=== PATIENT | male | born 1950 | race Caucasian/White ===

== ENCOUNTER 2018-01-08 15:33 | Inpatient (IN) | payer BC, MEDICARE ==
[2018-01-08] MEDS ORDERED: Piperacillin/Tazobac ADVAN(*) 3.375 GM in NS 0.9% 100 ML* 100 ML IVPB ONE (15:48)
[2018-01-08] MEDS ORDERED: NS 0.9% 1000 ML* 1,000 ML IV ONE ×2 (15:48→18:48)
--- NOTE | 2018-01-08 16:10 | ED ---
GI/ HPI - HPI Summary HPI Summary: This pt is a 67 y/o male [facility] [place] by Dr. Mueller for fever and urinary frequency/urgency since yesterday. Pt reports he had a biopsy of his prostate in [place], [place] 2 days ago. Pt notes that yesterday he had a fever , max of 101 F. Today he has been shaking all day as he reports he is freezing. Additionally he reports urinary frequency and urgency with a weak stream since last night. Today he had some urinary incontinence. Denies dysuria, nausea, vomiting, abd pain, chest pain, SOB. Pt went to see Dr. Mueller, urologist, today and was sent to the ED to rule out an infection. - History of Current Complaint Chief Complaint: EDFever Time Seen by Provider: 01/08/18 15:37 Stated Complaint: FEVER/SENT BY DR MUELLER Hx Obtained From: Patient Onset/Duration: Started Days Ago - 1, Still Present Timing: Lasting Days - 1 Current Severity: Moderate Pain Intensity: 0 Associated Signs and Symptoms: Positive: Fever, Chills, UTI Symptoms - urinary urgency and frequency, Other: - urine incontinence today. Negative: Nausea, Vomiting, Dysuria, Abdominal Pain, Chest Pain Aggravating Factor(s): Nothing Alleviating Factor(s): Nothing - Allergy/Home Medications Allergies/Adverse Reactions: Allergies Allergy/AdvReac Type Severity Reaction Status Date / Time No Known Allergies Allergy Verified 01/08/18 15:46 Home Medications: Home Medications Bisoprolol/Hydrochlorothiazide [Ziac 10-6.25 mg-] 1 tab PO DAILY 01/08/18 [ History Confirmed 01/08/18] Flecainide TAB(NF) 75 mg PO BID 01/08/18 [History Confirmed 01/08/18] Rivaroxaban TAB(*) [Xarelto 10 mg (*)] 20 mg PO DAILY 01/08/18 [History Confirmed 01/08/18] PMH/Surg Hx/FS Hx/Imm Hx Cardiovascular History: Reports: Hx Atrial Fibrillation, Hx Hypertension - never very high Infectious Disease History: No Infectious Disease History: Denies: Hx Clostridium Difficile, Hx Hepatitis, Hx Human Immunodeficiency Virus (HIV), Hx of Known/Suspected MRSA, Hx Shingles, Hx Tuberculosis, Hx Known/ Suspected VRE, Hx Known/Suspected VRSA, History Other Infectious Disease, Traveled Outside the [place] in Last 30 Days - Family History Known Family History: Positive: Hypertension - mother - Social History Alcohol Use: None Substance Use Type: Reports: None Smoking Status (MU): Never Smoked Tobacco Review of Systems Positive: Fever, Chills Negative: Chest Pain Negative: Shortness Of Breath Negative: Vomiting, Nausea Positive: frequency, incontinence - urine today, urgency. Negative: dysuria All Other Systems Reviewed And Are Negative: Yes Physical Exam - Summary Physical Exam Summary: VITAL SIGNS: Reviewed. GENERAL: Patient is a well-developed and nourished male who is lying comfortable in the stretcher. Patient is not in any acute respiratory distress. Pt is afebrile but has chills. HEAD AND FACE: No signs of trauma. No ecchymosis, hematomas or skull depressions. No sinus tenderness. EYES: PERRLA, EOMI x 2, No injected conjunctiva, no nystagmus. EARS: Hearing grossly intact. Ear canals and tympanic membranes are within normal limits. MOUTH: Oropharynx within normal limits. NECK: Supple, trachea is midline, no adenopathy, no JVD, no carotid bruit, no c- spine tenderness, neck with full ROM. CHEST: Symmetric, no tenderness at palpation LUNGS: Clear to auscultation bilaterally. No wheezing or crackles. CVS: Regular rate and rhythm, S1 and S2 present, no murmurs or gallops appreciated. ABDOMEN: Soft, non-tender. No signs of distention. No rebound, no guarding, and no masses palpated. Bowel sounds are normal. EXTREMITIES: FROM in all major joints, no edema, no cyanosis or clubbing. NEURO: Alert and oriented x 3. No acute neurological deficits. Speech is normal and follows commands. SKIN: Dry and warm Triage Information Reviewed: Yes Vital Signs On Initial Exam: Initial Vitals Temp Pulse Resp BP Pulse Ox 99.1 F 71 16 168/78 98 01/08/18 15:41 01/08/18 15:41 01/08/18 15:41 01/08/18 15:41 01/08/18 15:41 Vital Signs Reviewed: Yes Diagnostics - Vital Signs Vital Signs Temp Pulse Resp BP Pulse Ox 01/08/18 15:41 99.1 F 71 16 168/78 98 - Laboratory Result Diagrams: 01/08/18 16:05 01/08/18 16:05 Lab Statement: Any lab studies that have been ordered have been reviewed, and results considered in the medical decision making process. - Radiology Chest XR Xray Interpretation: No Acute Changes - IMPRESSION: No evidence for acute disease. Dr. Arreola has reviewed this report. Radiology Interpretation Completed By: Radiologist - EKG 15:56 Cardiac Rate: NL - at 71 bpm EKG Rhythm: Sinus Rhythm EKG Interpretation: No ST elevations. EKG Comparison: No Significant Change - Similar to prior on 01/19/15. GIGU Course/Dx - Course Assessment/Plan: This pt is a 67 y/o male presenting to [facility] referred by Dr. Mueller for fever and urinary frequency/urgency since yesterday. Pt reports he had a biopsy of his prostate in [place], [place] 2 days ago. Pt notes that yesterday he had a fever, max of 101 F. Today he has been shaking all day as he reports he is freezing. Additionally he reports urinary frequency and urgency with a weak stream since last night. Today he had some urinary incontinence. Denies dysuria, nausea, vomiting, abd pain, chest pain, SOB. Pt went to see Dr. Mueller, urologist, today and was sent to the ED to rule out an infection. Blood test results shows WBC of 29.3, with 87.8 neutrophils. CRP is 202, urinalysis shows 2+ blood, 1+ leukocytes, 3+ WBCs, 3+ RBCs and positive hyaline cast. In the ED course the patient was given a liter of fluids, he was given Zosyn after blood cultures, lactic acid and urine cultures. At this time I discussed the case with Dr. Maciel, hospitalist, who accepted the patient for admission. Dr. Mueller will consult for this patient. The patient is feeling better. He is hemodynamically stable and he is alert and oriented 3. - Diagnoses Differential Diagnoses - Male: Prostatitis, Urinary Tract Infection Provider Diagnoses: Prostatitis - Physician Notifications Discussed Care Of Patient With: Christofer Maciel - hospitalist Time Discussed With Above Provider: 16:55 Instructed by Provider To: Admit As Inpatient Discharge - Sign-Out/Discharge Documenting (check all that apply): Patient Departure - Admit to [facility] - Discharge Plan Condition: Stable Disposition: ADMITTED TO [facility] Referrals: Lyubov Donahue MD [Primary Care Provider] - - Attestation Statements Document Initiated by Scribe: Yes Documenting Scribe: Liss Colvin Provider For Whom Scribe is Documenting (Include Credential): Jaime Arreola MD Scribe Attestation: ILiss, scribed for Jaime Arreola MD on 01/08/18 at 1836.
[2018-01-08 16:14] LABS: Urine Appearance Cloudy; Urine Blood 2+ (Negative); Urine Color Yellow; Urine Ketones Negative (Negative); Urine Protein Negative (Negative); Urine Red Blood Cell 3+(>10/hpf) (Absent); Urine Specific Gravity 1.019 (1.010-1.030); Urine Urobilinogen Negative (Negative); Urine White Blood Cell 3+(>20/hpf) (Absent)
[2018-01-08 16:15] LABS: Hematocrit 44 % (42-52); Hemoglobin 14.8 g/dl (14.0-18.0); Mean Corpuscular HGB Conc 34 g/dl (31-36); Mean Corpuscular Hemoglobin 30 pg (27-31); Mean Corpuscular Volume 88 fL (80-94); Mean Platelet Volume 7.8 um3 (7.4-10.4); Platelet Count 231 10^3/ul (150-450); Red Blood Count 4.97 10^6/ul (4.00-5.40); Red Cell Distribution Width 13 % (10.5-15); White Blood Count 29.3 10^3/ul (3.5-10.8)
[2018-01-08 16:24] LABS: INR 1.2 (0.77-1.02)
[2018-01-08 16:33] LABS: EGFR Non-African American 62.4 (>60)
--- NOTE | 2018-01-08 16:36 | RAD ---
INDICATION: Fever. COMPARISON: There are no relevant prior studies available for comparison. TECHNIQUE: A portable view of the chest was obtained. FINDINGS: Cardiac and mediastinal contours appear to be within normal limits. The lungs are underinflated and clear. No pleural effusion is seen. IMPRESSION: NO EVIDENCE FOR ACUTE DISEASE.
[2018-01-08 16:45] LABS: ABS Basophils 0.1 10^3/ul (0-0.2); ABS Eosinophils 0 10^3/ul (0-0.6); ABS Monocytes 2.5 10^3/ul (0-0.8); ABS Neutrophils 25.7 10^3/ul (1.5-7.7); ABS Nucleated RBC 0.1 10^3/ul; Eosinophil % 0 % (0-6); Lymphocyte % 3.5 % (25-47); Nucleated Red Blood Cells % 0.4
[2018-01-08] MEDS ORDERED: Piperacillin/Tazobac (*) 3.375 GM BAG ONE (17:02)
[2018-01-08] MEDS ORDERED: Acetaminophen TAB* 325 MG PO ONE (17:34)
[2018-01-08] MEDS ORDERED: Acetaminophen TAB* 325 MG ONE (17:36)
[2018-01-08] MEDS ORDERED: Ondansetron INJ* 2 MG/ML VIAL IV PRN (18:20)
[2018-01-08] MEDS ORDERED: Magnesium Hydroxide LIQ* 30 ML UDC PO PRN (18:20)
[2018-01-08] MEDS ORDERED: Al Hydrox/Mg Hydrox/Simet LIQ* 30 ML UDC PO PRN (18:20)
[2018-01-08] MEDS: Acetaminophen TAB* 325 MG PO PRN (21:39)
[2018-01-08] MEDS: Flecainide TAB* 100 MG PO SCH (21:43)
[2018-01-08] MEDS: NS 0.9% 1000 ML* 1,000 ML IV SCH (21:48)
[2018-01-08] MEDS: Piperacillin/Tazobac ADVAN(*) 3.375 GM in NS 0.9% 100 ML* 100 ML IVPB SCH (22:32)
--- NOTE | 2018-01-08 23:28 | HP ---
CC: Dr. Donahue; Dr. Velazquez * ADMISSION HISTORY AND PHYSICAL: DATE OF ADMISSION: 01/08/18. PATIENT OF ADMITTING HOSPITALIST: Dr. Christofer Maciel.* (DICTATED BY LUZ KEMP) PRIMARY CARE PHYSICIAN: Dr. Lyubov Donahue. PRIMARY UROLOGIST: Dr. Marcelo Velazquez. CHIEF COMPLAINT: Fever, chills, dysuria, and urinary frequency. HISTORY OF PRESENT ILLNESS: Mr. Ulloa is a 67-year-old gentleman, who has past medical history significant for hypertension and atrial fibrillation for which he has been maintained on Xarelto, who was referred to the emergency room by Dr. Velazquez with complaints of fever and urinary symptoms. The patient apparently has history of elevated PSA for which he has been followed closely by Dr. Velazquez. He had multiple imaging including an MRI that showed suspicious lesion within the prostate gland. He was referred to [facility] urology group in [place] to consider MRI guided needle biopsy which he had done 2 days ago. He started having a fever yesterday up to 101 degrees at home and he was shaking all day, yesterday, felt like he was freezing as well. Last night, he said that he got up approximately 20 times with urinary frequency, urgency, weak stream and dysuria since last night. He took some Tylenol that helped with fever, however, did not help his urinary symptoms at all. He denied any suprapubic or flank pain. No chest pain, shortness of breath, nausea, vomiting or any other associated symptoms. He got in touch with Dr. Velazquez today and the patient was sent to the emergency room to rule out an infection. Urine and blood cultures were drawn and the results are pending at this time. During his ER stay, the patient was found to be febrile on presentation with temperature of 101.3. His blood pressure was slightly elevated at 168/78, however, he was not tachycardiac with heart rate of 71. He had laboratory workup in the ED that revealed leukocytosis with a white count of 29,000. His initial urinalysis revealed 1+ leukocytes and 3+ white cells as well as 3+ rbc's. He denied any scrotal pain or testicular pain. He denied any changes in the bowel movements or bleeding per rectum. Given his ongoing symptoms and the high likelihood of him having prostatitis post biopsy, we were asked to see the patient to consider admission for IV antibiotics. PAST MEDICAL HISTORY: Significant for: 1. Hypertension. 2. Atrial fibrillation for which the patient had a cardioversion done twice in the past by Dr. Murrell and has been maintained on Xarelto and flecainide. 3. History of elevated PSA and prostatic lesions. 4. Hypertension. PAST SURGICAL HISTORY: Significant for history of atrial fibrillation x2. FAMILY HISTORY: Significant for hypertension in his mother. Denies any history of prostate cancer in his family. SOCIAL HISTORY: The patient has never smoked tobacco. He does not drink alcohol or use illicit drug use. 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 REVIEW OF SYSTEMS: See HPI, otherwise a 12-point review of systems were examined and they were essentially negative. PHYSICAL EXAMINATION GENERAL: He is a pleasant, obese middle age gentleman, in no acute distress or discomfort at the time of admission. VITAL SIGNS: Most recently was temperature of 101.3, pulse of 71, O2 sat of 98 % with respiratory rate of 16, and blood pressure of 168/78. HEENT: Head is normocephalic, atraumatic. Sclerae anicteric. PERRLA, EOMs intact. Oropharynx is pink and moist. NECK: Supple. Trachea midline. No cervical adenopathy or thyromegaly. LUNGS: Clear to auscultation bilaterally. HEART: Regular rate and rhythm. Normal S1 and S2 without rubs, murmurs or gallops. BACK: Normal curvature, no CVA tenderness. ABDOMEN: Soft, nontender and nondistended. There is no suprapubic or flank tenderness on exam. No guarding, rigidity, or rebound tenderness. No hernias, masses, or hepatosplenomegaly. EXTREMITIES: Without cyanosis, clubbing or edema. RECTAL EXAM: Deferred at this time. NEUROLOGIC: He is awake, alert, and oriented x3. 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 Tongue is midline and sensation is intact throughout. DIAGNOSTIC STUDIES/LAB DATA: Laboratory workup: CBC with white count of 29, 000, hemoglobin 14.8, hematocrit 44, and platelets of 231. Coags with INR of 1.2. Chemistry panel today essentially normal with sodium of 136, potassium of 4 , chloride 101, CO2 29, BUN of 18 and creatinine of 1.17. LFTs within normal limits. Lactic acid is 1.3. CRP elevated at 202. Urinalysis as mentioned above with 3+ white and red blood cells. Urine and blood cultures are pending at the time of admission. IMPRESSION: A 67-year-old gentleman with past medical history of hypertension, atrial fibrillation, and elevated prostate specific antigen, who had MRI guided prostate biopsy 2 days ago in [place], now presents to the emergency room with fever, chills, dysuria with urinary frequency and urgency, likely secondary to acute prostatitis for which the patient will be admitted under hospitalist services for the following assessment and plan: 1. Acute prostatitis. I went on and discussed with the patient the rationale behind his diagnosis. He does not appear septic to me at this point, however, he does have high fever and leukocytosis. He has been drinking enough fluid and we will continue to bolus him aggressively with 2 liters now and continue IV fluid while he stay in the hospital. Dr. Velazquez has already touch base with ER staff and Dr. Arreola. The patient will be covered with Zosyn for the time being awaiting blood and urine cultures, and he will be seen in neurology consultation in the morning. I have a low suspicion for any prostatic abscess at that point. However, I did mention to the patient a possibility of getting a CT scan in the morning if seem indicated. We will cover him symptomatically for any pain, which he does not have or nausea as well. He is clinically stable at the time of discharge and we will keep close observation tonight. 2. Hypertension. He is slightly hypertensive likely secondary to stress reaction from infection/inflammation. I will continue his Ziac per home dose. 3. History of atrial fibrillation. He appears to be in sinus rhythm based on the monitor in the emergency room. I will continue his flecainide; however, his Xarelto has been on hold for this procedure, and he is not scheduled to resume it till tomorrow. I will touch base with Dr. Velazquez tomorrow regarding resuming anticoagulation therapy given his recent prostate biopsy. 4. DVT prophylaxis. The patient is high risk; however, we will utilize mechanical coverage with SCDs for the time being. No chemical anticoagulation due to high risk for bleeding after prostate biopsy via transrectal route. 5. Code status. He wishes to be a full code. 6. Disposition. Admit for observation to medical floor for IV fluid hydration and antibiotics for treatment of acute prostatitis, and await urology consult recommendation in the morning. TIME SPENT: Approximately 60 minutes were spent admitting this patient for which greater than 50% of this time on taking history and performing physical exam. I went on and discussed the case with my attending, who agreed to plan of care and will follow him up accordingly. LUZ KEMP [id number]/[facility] #: [id number] MTDArnold
[2018-01-09] MEDS: Acetaminophen TAB* 325 MG PO PRN ×2 (04:27→16:08)
[2018-01-09] MEDS ORDERED: Piperacillin/Tazobac ADVAN(*) 3.375 GM in NS 0.9% 100 ML* 100 ML IVPB SCH (06:00)
[2018-01-09] MEDS: Piperacillin/Tazobac ADVAN(*) 3.375 GM in NS 0.9% 100 ML* 100 ML IVPB SCH ×3 (06:17→22:30)
[2018-01-09 07:09] LABS: ABS Basophils 0 10^3/ul (0-0.2); ABS Eosinophils 0 10^3/ul (0-0.6); ABS Lymphocytes 0.8 10^3/ul (1.0-4.8); ABS Monocytes 1.5 10^3/ul (0-0.8); ABS Neutrophils 15.4 10^3/ul (1.5-7.7); ABS Nucleated RBC 0 10^3/ul; Eosinophil % 0 % (0-6); Hematocrit 37 % (42-52); Lymphocyte % 4.4 % (25-47); Mean Corpuscular HGB Conc 35 g/dl (31-36); Mean Corpuscular Hemoglobin 30 pg (27-31); Mean Corpuscular Volume 86 fL (80-94); Mean Platelet Volume 8.1 um3 (7.4-10.4); Nucleated Red Blood Cells % 0.1; Platelet Count 173 10^3/ul (150-450); Red Blood Count 4.33 10^6/ul (4.00-5.40); Red Cell Distribution Width 13 % (10.5-15); White Blood Count 17.7 10^3/ul (3.5-10.8)
[2018-01-09 07:29] LABS: EGFR Non-African American 67.7 (>60)
[2018-01-09] MEDS: Hydrochlorothiazide TAB* 25 MG PO SCH (08:17)
[2018-01-09] MEDS: Flecainide TAB* 100 MG PO SCH ×2 (08:18→20:07)
[2018-01-09] MEDS: Bisoprolol TAB* 5 MG PO SCH (08:19)
[2018-01-09] MEDS: NS 0.9% 1000 ML* 1,000 ML IV SCH (15:14)
[2018-01-09] MEDS: Rivaroxaban TAB(*) 20 MG TAB PO SCH (16:08)
--- NOTE | 2018-01-09 17:06 | PN ---
Subjective Date of Service: 01/09/18 Interval History: Mr. Ulloa is doing much better today. He is ambulatory, reports occasional fever last night, but no shaking chills, chest or flank pain. Denies nausea or vomiting. Able to void with less frequency last night. He has no complaints today. Family History: Unchanged from Admission Social History: Unchanged from Admission Past Medical History: Unchanged from Admission Objective Active Medications: Acetaminophen (Tylenol Tab*) 975 mg PO Q6H PRN PRN Reason: FEVER/PAIN Last Admin: 01/09/18 16:08 Dose: 975 mg Al Hydrox/Mg Hydrox/Simethicone (Maalox Plus*) 30 ml PO Q6H PRN PRN Reason: INDIGESTION Bisoprolol Fumarate (Zebeta Tab*) 10 mg PO DAILY [facility] Last Admin: 01/09/18 08:19 Dose: 10 mg Flecainide Acetate (Tambocor Tab*) 75 mg PO BID [facility] Last Admin: 01/09/18 08:18 Dose: 75 mg Hydrochlorothiazide (Hydrodiuril Tab*) 6.25 mg PO DAILY [facility] Last Admin: 01/09/18 08:17 Dose: 6.25 mg Sodium Chloride (Ns 0.9% 1000 Ml*) 1,000 mls @ 125 mls/hr IV PER RATE [facility] Last Admin: 01/09/18 15:14 Dose: 125 mls/hr Piperacillin Sod/Tazobactam (Sod 3.375 gm/ Sodium Chloride) 100 mls @ 25 mls/ hr IVPB Q8H [facility] Last Admin: 01/09/18 16:08 Dose: 25 mls/hr Magnesium Hydroxide (Milk Of Magnesia Liq*) 30 ml PO Q4H PRN PRN Reason: CONSTIPATION Ondansetron HCl (Zofran Inj*) 4 mg IV Q4H PRN PRN Reason: NAUSEA/VOMITING Rivaroxaban (Xarelto(*)) 20 mg PO DAILY [facility] Last Admin: 01/09/18 16:08 Dose: 20 mg Vital Signs - 8 hr 01/09/18 01/09/18 11:33 16:01 Temperature 98.4 F 100.6 F Pulse Rate 66 66 Respiratory 18 23 Rate Blood Pressure 140/65 120/43 (mmHg) O2 Sat by Pulse 96 95 Oximetry Oxygen Devices in Use Now: None Appearance: Appears comfortable and in NAD Eyes: No Scleral Icterus, PERRLA Ears/Nose/Mouth/Throat: Clear Oropharnyx, Mucous Membranes Moist Neck: NL Appearance and Movements; NL JVP, Trachea Midline Respiratory: Symmetrical Chest Expansion and Respiratory Effort, Clear to Auscultation Cardiovascular: NL Sounds; No Murmurs; No JVD, RRR Abdominal: NL Sounds; No Tenderness; No Distention Extremities: No Edema Neurological: Alert and Oriented x 3 Nutrition: Taking PO's Result Diagrams: 01/09/18 06:37 01/09/18 06:37 Microbiology and Other Data: Microbiology 01/08/18 16:05 Aerobic Blood Culture - Preliminary Blood Venous No Growth Day 1 Anaerobic Blood Culture - Preliminary No Growth Day 1 01/08/18 16:02 Urine Culture - Preliminary Urine Escherichia Coli Diagnostic Imaging: . EKG Data: . Assess/Plan/Problems-Billing Assessment: - Patient Problems (1) Acute prostatitis with hematuria Current Visit: Yes Status: Acute Comment: - Clinically improving on Zosyn - Dr. Velazquez saw patient, recommended 1-2 days of IV antibiotics pending blood cultures and urine cultures. - No rectal exam in setting of prostatitis - No clinical suspesion for abscess, however if no improvement in next couple of days, will get a CT to r/o abscess (2) HTN (hypertension) Current Visit: Yes Status: Acute Comment: - Continue home meds (3) Atrial fibrillation Current Visit: Yes Status: Acute Comment: - Rate controlled - Xarelto to be resumed today, has been on hold for a week due to biopsy (4) DVT prophylaxis Current Visit: Yes Status: Acute Comment: - On Xarelto (5) Full code status Current Visit: Yes Status: Acute Status and Disposition: Inpatient. Anticipate discharge to home once medically stable.
[2018-01-09] MEDS ORDERED: Ibuprofen TAB* 800 MG PO PRN (18:02)
[2018-01-10] MEDS: NS 0.9% 1000 ML* 1,000 ML IV SCH ×2 (03:42→16:32)
[2018-01-10 06:09] LABS: ABS Basophils 0 10^3/ul (0-0.2); ABS Eosinophils 0.1 10^3/ul (0-0.6); ABS Lymphocytes 0.7 10^3/ul (1.0-4.8); ABS Monocytes 1.3 10^3/ul (0-0.8); ABS Neutrophils 10.2 10^3/ul (1.5-7.7); ABS Nucleated RBC 0 10^3/ul; Eosinophil % 0.6 % (0-6); Hematocrit 39 % (42-52); Hemoglobin 12.9 g/dl (14.0-18.0); Lymphocyte % 5.8 % (25-47); Mean Corpuscular HGB Conc 34 g/dl (31-36); Mean Corpuscular Hemoglobin 30 pg (27-31); Mean Corpuscular Volume 89 fL (80-94); Mean Platelet Volume 8.5 um3 (7.4-10.4); Nucleated Red Blood Cells % 0.1; Platelet Count 154 10^3/ul (150-450); Red Blood Count 4.31 10^6/ul (4.00-5.40); Red Cell Distribution Width 14 % (10.5-15); White Blood Count 12.3 10^3/ul (3.5-10.8)
[2018-01-10] MEDS: Piperacillin/Tazobac ADVAN(*) 3.375 GM in NS 0.9% 100 ML* 100 ML IVPB SCH (06:25)
[2018-01-10 06:27] LABS: EGFR Non-African American 70.7 (>60)
[2018-01-10] MEDS: Bisoprolol TAB* 5 MG PO SCH (08:26)
[2018-01-10] MEDS: Hydrochlorothiazide TAB* 25 MG PO SCH ×2 (08:26→11:54)
[2018-01-10] MEDS: Flecainide TAB* 100 MG PO SCH ×2 (08:36→19:41)
[2018-01-10] MEDS: Rivaroxaban TAB(*) 20 MG TAB PO SCH (08:36)
[2018-01-10] MEDS ORDERED: Meropenem 1 GM PREMIX(*) 1 GM/50 ML BAG IV SCH (10:00)
[2018-01-10] MEDS: Meropenem 1 GM PREMIX(*) 1 GM/50 ML BAG IV SCH ×2 (12:16→19:40)
--- NOTE | 2018-01-10 14:12 | PN ---
Subjective Date of Service: 01/10/18 Interval History: Patient is feeling OK today. Is walking around the unit without dizziness, SOB, or palpitations. Complains of intermittent chills and had 1 fever last night. Patient had urinary incontinence yesterday but has not had any today. Patient denies CP, N/V, abdominal pain, diarrhea, or other pain. Family History: Unchanged from Admission Social History: Unchanged from Admission Past Medical History: Unchanged from Admission Objective Active Medications: Acetaminophen (Tylenol Tab*) 975 mg PO Q6H PRN PRN Reason: FEVER/PAIN Last Admin: 01/09/18 16:08 Dose: 975 mg Al Hydrox/Mg Hydrox/Simethicone (Maalox Plus*) 30 ml PO Q6H PRN PRN Reason: INDIGESTION Bisoprolol Fumarate (Zebeta Tab*) 10 mg PO DAILY [facility] Last Admin: 01/10/18 08:26 Dose: Not Given Flecainide Acetate (Tambocor Tab*) 75 mg PO BID [facility] Last Admin: 01/10/18 08:36 Dose: 75 mg Hydrochlorothiazide (Hydrodiuril Tab*) 6.25 mg PO DAILY [facility] Last Admin: 01/10/18 11:54 Dose: 6.25 mg Meropenem (Merrem 1 Gm Premix(*)) 1 gm in 50 mls @ 100 mls/hr IV 0400,1200, 2000 [facility] Last Admin: 01/10/18 12:16 Dose: 100 mls/hr Sodium Chloride (Ns 0.9% 1000 Ml*) 1,000 mls @ 75 mls/hr IV PER RATE [facility] Ibuprofen (Motrin Tab*) 800 mg PO Q8H PRN PRN Reason: PAIN Last Admin: 01/09/18 18:14 Dose: 800 mg Magnesium Hydroxide (Milk Of Magnesia Liq*) 30 ml PO Q4H PRN PRN Reason: CONSTIPATION Ondansetron HCl (Zofran Inj*) 4 mg IV Q4H PRN PRN Reason: NAUSEA/VOMITING Rivaroxaban (Xarelto(*)) 20 mg PO DAILY [facility] Last Admin: 01/10/18 08:36 Dose: 20 mg Vital Signs - 8 hr 01/10/18 01/10/18 01/10/18 07:52 08:08 11:43 Temperature 97.7 F 97.8 F Pulse Rate 52 59 Respiratory 16 16 20 Rate Blood Pressure 127/69 151/71 (mmHg) O2 Sat by Pulse 97 97 99 Oximetry Oxygen Devices in Use Now: None Appearance: Patient is a 67yo male who appears stated age and is sitting in the bed in NAD. Eyes: No Scleral Icterus, PERRLA Ears/Nose/Mouth/Throat: NL Teeth, Lips, Gums, Clear Oropharnyx, Mucous Membranes Moist Neck: NL Appearance and Movements; NL JVP, Trachea Midline Respiratory: Symmetrical Chest Expansion and Respiratory Effort, Clear to Auscultation Cardiovascular: NL Sounds; No Murmurs; No JVD, RRR, No Edema Abdominal: NL Sounds; No Tenderness; No Distention, No Hepatosplenomegaly Lymphatic: No Cervical Adenopathy Extremities: No Edema, No Clubbing, Cyanosis Skin: No Rash or Ulcers, No Nodules or Sclerosis Neurological: NL Sensation, NL Gait, NL Muscle Strength and Tone, - - CN II-XII intact. Result Diagrams: 01/10/18 05:31 01/10/18 05:31 Microbiology and Other Data: Microbiology 01/08/18 16:05 Aerobic Blood Culture - Preliminary Blood Venous No Growth Day 1 Anaerobic Blood Culture - Preliminary No Growth Day 1 01/08/18 16:02 Urine Culture - Preliminary Urine Escherichia Coli Diagnostic Imaging: . EKG Data: . Assess/Plan/Problems-Billing Assessment: Patient is a 67yo male with a PMH for prostate nodule and Afib who is admitted with sepsis related to presumed prostatitis after a transrectal prostate biopsy and is improving on IV antibiotics. - Patient Problems (1) Acute prostatitis with hematuria Current Visit: Yes Status: Acute Code(s): N41.0 - ACUTE PROSTATITIS SNOMED Code(s): 70796620 Comment: - Clinically improving on Zosyn but with persistent fevers. Switch to Meropenum due to ESBL status. - Appreciate urology and ID input, continue with IV antibiotics until tomorrow then 3 weeks of Bactrim. - No clinical suspesion for abscess (2) Atrial fibrillation Current Visit: Yes Status: Acute Code(s): I48.91 - UNSPECIFIED ATRIAL FIBRILLATION SNOMED Code(s): 05220482 Comment: - Rate low, Asymptomatic, labatelol held - Xarelto resumed (3) HTN (hypertension) Current Visit: Yes Status: Acute Code(s): I10 - ESSENTIAL (PRIMARY) HYPERTENSION SNOMED Code(s): 77101868 Comment: - Normotensive - Continue home meds (4) DVT prophylaxis Current Visit: Yes Status: Acute Code(s): GZR0233 - SNOMED Code(s): 231427938 Comment: - On Xarelto (5) Full code status Current Visit: Yes Status: Acute Code(s): Z78.9 - OTHER SPECIFIED HEALTH STATUS SNOMED Code(s): 730555184 Status and Disposition: Inpatient. Anticipate discharge to home tomorrow.
--- NOTE | 2018-01-10 17:54 | CONS ---
CC: Dr. Raji Clemente, Department of Urology, [place], [place] * CONSULTATION NOTE: DATE OF CONSULT: 01/09/18 LOCATION: The patient is in room #418. HISTORY OF PRESENT ILLNESS: Mr. Ulloa is a 67-year-old white male, whom I have been following for several years because of PSA elevation. His prostate exam has been normal except for prostate enlargement. On 05/06/17, because of a PSA progression to 6.9, the patient underwent a transrectal ultrasound and multiple prostate biopsies in my office. The procedure was uncomplicated. The pathology showed benign prostate tissue with 1 focus of high-grade PIN. He was continued to be followed and on 09/19/17, his PSA had progressed to 8.9. It was repeated 1 month later and it was still elevated at 7.6. Because of the persistent PSA elevation and progression, he was referred to [facility] where he had an MRI of the prostate. The MRI showed suspicious lesion and fusion prostate biopsies were recommended. The patient was then referred to Dr. Raji Clemente, Department of Urology, at [facility] to perform the MRI fusion biopsies. The patient was prepared with antibiotics for the procedure and he started Cipro 500 mg twice a day 1 day before the procedure. Before the procedure was performed, he was given 1 g of ceftriaxone IM. The procedure was performed on 01/06/18. It was uncomplicated. The patient took Cipro post procedure. Thirty-six hours after the procedure, the patient started having fever, chills, and symptoms of prostatitis with urgency, frequency, urge urinary incontinence, and feeling of incomplete bladder emptying. There was no associated gross hematuria. He came to my office on 01/08/18 for evaluation. He looked shaky and temperature was 100. His urinalysis was positive for blood and for esterase. Post void bladder ultrasound showed a resigual of about 50 cc. Because of suspected urosepsis, he was immediately sent to the emergency room, and I discussed his condition with the ER physician, with my recommendations for cultures, admission and antibiotics. He was evaluated by the emergency room staff. His temperature was up to 101.3. He was not hypotensive. Lab work showed a blood count of 29,000 with 88% neutrophils. Urinalysis was positive for infection. His serum creatinine was normal and his lactic acid was elevated. Blood cultures and urine culture were obtained and the patient was admitted on the medical service and was started on IV Zosyn. I have been following the patient daily during his hospital stay, communicating with LUZ Bianchi. He responded well to the treatment, his temperature is down and the voiding symptoms are almost completely resolved. His blood cultures at the date of this dictation have shown no growth. His urine culture grew ESBL E. coli resistant to quinolones and to ceftriaxone. It is sensitive to Bactrim, Augmentin, and meropenem. PLAN: The plan is to keep the patient on IV antibiotics until tomorrow. If he continues to do well, he can be discharged on Bactrim DS 1 b.i.d. for 3 weeks. I will see him back in my office for follow-up, to discuss the results of the prostate biopsies, and to recheck on the prostatitis. [id number]/CPS #: [id number] MTDD
[2018-01-10] MEDS: Acetaminophen TAB* 325 MG PO PRN (19:48)
[2018-01-11] MEDS: Meropenem 1 GM PREMIX(*) 1 GM/50 ML BAG IV SCH ×2 (03:39→11:58)
[2018-01-11 06:38] LABS: ABS Basophils 0 10^3/ul (0-0.2); ABS Eosinophils 0.1 10^3/ul (0-0.6); ABS Lymphocytes 1.2 10^3/ul (1.0-4.8); ABS Monocytes 1.5 10^3/ul (0-0.8); ABS Neutrophils 8.3 10^3/ul (1.5-7.7); ABS Nucleated RBC 0 10^3/ul; Eosinophil % 0.6 % (0-6); Hematocrit 37 % (42-52); Hemoglobin 12.7 g/dl (14.0-18.0); Mean Corpuscular HGB Conc 35 g/dl (31-36); Mean Corpuscular Hemoglobin 30 pg (27-31); Mean Corpuscular Volume 87 fL (80-94); Mean Platelet Volume 8.3 um3 (7.4-10.4); Nucleated Red Blood Cells % 0.1; Platelet Count 196 10^3/ul (150-450); Red Blood Count 4.24 10^6/ul (4.00-5.40); Red Cell Distribution Width 14 % (10.5-15); White Blood Count 11.2 10^3/ul (3.5-10.8)
[2018-01-11 06:55] LABS: EGFR Non-African American 86.6 (>60)
[2018-01-11] MEDS: NS 0.9% 1000 ML* 1,000 ML IV SCH (07:12)
[2018-01-11 07:16] VITALS: BP 154/74
[2018-01-11] MEDS: Bisoprolol TAB* 5 MG PO SCH (08:32)
[2018-01-11] MEDS: Rivaroxaban TAB(*) 20 MG TAB PO SCH (08:32)
[2018-01-11] MEDS: Hydrochlorothiazide TAB* 25 MG PO SCH (08:33)
[2018-01-11] MEDS: Flecainide TAB* 100 MG PO SCH (08:34)
--- NOTE | 2018-01-12 04:28 | DS ---
CC: Dr. Lyubov Donahue; Dr. Marcelo Velazquez * DISCHARGE SUMMARY: DATE OF ADMISSION: 01/08/18 DATE OF DISCHARGE: 01/11/18 PRIMARY CARE PROVIDER: Dr. Lyubov Donahue. OUTPATIENT UROLOGIST: Dr. Marcelo Velazquez. ATTENDING PROVIDER: Nae Pena MD * (DICTATED BY LUZ CARROLL) PRIMARY DISCHARGE DIAGNOSIS: Acute bacterial prostatitis. SECONDARY DISCHARGE DIAGNOSES: 1. Prostatic mass. 2. Hypertension. 3. Paroxysmal atrial fibrillation. STUDIES DONE WHILE IN THE HOSPITAL: 1. Chest x-ray from 01/08/18 read as no evidence for acute disease. 2. EKG shows normal sinus rhythm, no ST segment changes, normal axis. No hypertrophy or enlargement. QTc of 418. MEDICATIONS AT DISCHARGE: 1. Xarelto 20 mg p.o. daily. 2. Flecainide 75 mg p.o. b.i.d. 3. Bisoprolol/hydrochlorothiazide 1 tab p.o. daily. 4. Tylenol 575 mg p.o. q.6 hours as needed. 5. Ibuprofen 800 mg p.o. q.8 hours as needed. 6. Bactrim 1 tab p.o. b.i.d. x41 doses. New medication at discharge: Bactrim, Tylenol, and ibuprofen. HOSPITAL COURSE: This is a brief summary of patient's presentation. For more details, please see history and physical from [facility] on 01/08/18. In brief, the patient is a 67-year-old male with past medical history significant for the above, who recently [facility] and then developed fevers, shakes, and dysuria with urinary frequency. The patient came to emergency department and had signs of sepsis associated with positive urinalysis. The patient was started on Zosyn. The patient improved on Zosyn, however, still had dysuria, urinary incontinence, and fevers intermittently. The patient had no hypotension nor tachycardia. The patient had a leukocytosis of 29.3 and a lactic acid of 27 with severely elevated CRP at 202. The patient improved in all areas progressively; however, the patient's urine grew out ESBL E. coli, which was susceptible to vancomycin; however, based on data regarding serious infections from ESBL E. coli, the patient was switched to meropenem. The patient had a recurrent low-grade fever on 01/10/18; however, the patient felt as if his disease had resolved. The patient was seen in consultation by Dr. Marcelo Velazquez of Urology, who recommended discharge on 3 weeks of Bactrim. This plan was reviewed with infectious disease specialist, Dr. Ever Strong, who was in agreement at formal consult. The patient was discharged on 01/11/18. PHYSICAL EXAM ON THE DAY OF DISCHARGE: General: The patient is a 67-year-old male, who appears stated age and sitting comfortably in bed, in no acute distress. Vital Signs: At the time of discharge, temperature 98.5, pulse rate 52, respiratory rate 16, oxygen saturation 98% on room air, blood pressure 124/ 53. HEENT: Head: Normocephalic, atraumatic. Sclerae anicteric. No conjunctival injection. Nasal mucosa moist. Oral mucosa moist. No pharyngeal erythema, discharge, or exudates. Neck: Supple, nontender. No lymphadenopathy. No carotid bruit auscultated. No JVD. Cardiac: Regular rate and rhythm. No clicks, murmurs, gallops, or rubs. Pulses 2+ bilaterally in dorsalis pedis, posterior tibialis, and radial areas. Respiratory: Clear to auscultation bilaterally. No wheezes, rales, or rhonchi. Good air exchange bilaterally. Abdomen: Soft, nontender, nondistended. Bowel sounds present, normoactive in all 4 quadrants. No hepatosplenomegaly. No abdominal bruits auscultated. No hepatojugular reflux. Skin: Clean, dry, and intact. No rash. Neuro: Cranial nerves II through XII intact. No focal deficits. Alert and oriented x3. Normal gait. Psychiatric: Pleasant and cooperative. DISCHARGE PLAN: The patient will be discharged to home. The patient should follow up with Dr. Velazquez in 1 to 2 weeks. The patient will be discharged on Bactrim double strength twice daily. The patient should have repeat BMP in 1 week to assess the effect of his Bactrim on his potassium and creatinine. The patient should return to the hospital for alarming symptoms such as high fevers , passing out, chest pain, shortness of breath. The patient should have a heart -healthy diet without caffeine and engage in activities as tolerated. The patient should establish and follow up with a primary care provider for general medical management. The patient should follow up with his certified pharmacist assistant, Dr. Murrell, as scheduled in 1 week for management of his atrial fibrillation. TIME SPENT: Approximately 60 minutes were spent on the discharge of the patient , 30 of which were spent [id number] with the patient, obtaining history and physical, discussing treatment plan. LUZ CARROLL [id number]/[facility] #: [id number] ZULMA
== END 2018-01-11 13:10 | disposition home or self-care (01) | DRG 501 ==
LOC: ED 15:33 → MED 18:09 → OBSVTOIN 01-09 17:08
PROVIDERS: ADMIT Internal Medicine; ATTEND Pediatrics
DX: N41.0 Acute prostatitis (principal); B96.20 Unspecified Escherichia coli [E. coli] as the cause of diseases classified elsewhere; I10 Essential (primary) hypertension; I48.0 Paroxysmal atrial fibrillation; N42.89 Other specified disorders of prostate; R35.0 Frequency of micturition; Z82.49 Family history of ischemic heart disease and other diseases of the circulatory system; Z79.01 Long term (current) use of anticoagulants; Z79.899 Other long term (current) drug therapy
CPT/HCPCS: 36415; 71045; 80048; 80053; 81003; 81015; 82550; 83605; 84484; 85025; 85610; 85652; 85730; 86140; 87040; 87077; 87086; 87186; 93005; 96365; 96366; 99284; A9270-GY; G0378; J2185; J2543

== ENCOUNTER 2018-03-29 21:23 | Emergency (ER) | payer BC ==
[2018-03-29 23:08] LABS: Hematocrit 37 % (42-52); Hemoglobin 12.8 g/dl (14.0-18.0); Mean Corpuscular HGB Conc 35 g/dl (31-36); Mean Corpuscular Hemoglobin 30 pg (27-31); Mean Corpuscular Volume 88 fL (80-94); Mean Platelet Volume 7.2 fL (7.4-10.4); Platelet Count 369 10^3/ul (150-450); Red Blood Count 4.21 10^6/ul (4.00-5.40); Red Cell Distribution Width 13 % (10.5-15)
--- NOTE | 2018-03-29 23:22 | ED ---
GI/ HPI - HPI Summary HPI Summary: Patient with history of recent prostatectomy 7 days ago at [facility] with urologist Dr. Rodriguez states indwelling Martin catheter stop draining around 6 PM tonight. Patient states he had, but gated prostate surgery and required a three -day stay in the hospital. States It was draining normally this morning. Has mild discomfort from surgery, states no change in level of discomfort. Denies any other symptoms including fever, abdominal pain, change in BM, N/V, CP, SOB. Medical history is prostate cancer, A. fib. - History of Current Complaint Chief Complaint: EDUrogenitalProblems Time Seen by Provider: 03/29/18 21:51 Stated Complaint: CATHETER PROBLEM Hx Obtained From: Patient, Family/Hvac Technician Onset/Duration: Started Hours Ago Timing: Constant Current Severity: None Pain Intensity: 2 Location of Pain: Diffuse Associated Signs and Symptoms: Positive: Hematuria - Additional Pertinent History Primary Care Physician: PAUL - Allergy/Home Medications Allergies/Adverse Reactions: Allergies Allergy/AdvReac Type Severity Reaction Status Date / Time No Known Allergies Allergy Verified 03/29/18 21:31 PMH/Surg Hx/FS Hx/Imm Hx Previously Healthy: Yes Endocrine/Hematology History: Reports: Hx Anticoagulant Therapy Cardiovascular History: Reports: Hx Atrial Fibrillation, Hx Hypertension - never very high History: Denies: Hx Dialysis Sensory History: Reports: Hx Contacts or Glasses Denies: Hx Hearing Aid Opthamlomology History: Reports: Hx Contacts or Glasses Psychiatric History: Denies: Hx Autism Infectious Disease History: Yes Infectious Disease History: Denies: Hx Clostridium Difficile, Hx Hepatitis, Hx Human Immunodeficiency Virus (HIV), Hx of Known/Suspected MRSA, Hx Shingles, Hx Tuberculosis, Hx Known/ Suspected VRE, Hx Known/Suspected VRSA, History Other Infectious Disease, Traveled Outside the [place] in Last 30 Days - Family History Known Family History: Positive: Hypertension - mother - Social History Lives: With Family Alcohol Use: None Substance Use Type: Reports: None Smoking Status (MU): Never Smoked Tobacco Review of Systems Constitutional: Negative Eyes: Negative ENT: Negative Cardiovascular: Negative Respiratory: Negative Gastrointestinal: Negative Positive: see HPI Musculoskeletal: Negative Skin: Negative Neurological: Negative Psychological: Normal All Other Systems Reviewed And Are Negative: Yes Physical Exam - Summary Physical Exam Summary: Abdominal exam unremarkable. Surgical sites on abdomen appear clean and dry and intact. Surgical drain left lower quadrant appears to be draining well. Stoma is non-erythematous, no foul odor, no purulent discharge. Urine is leaking out of the tip of the penis. Urine in catheter bag is dark with small blood clots in it. Triage Information Reviewed: Yes Vital Signs On Initial Exam: Initial Vitals Temp Pulse Resp BP Pulse Ox 96.2 F 60 16 135/73 95 03/29/18 21:28 03/29/18 21:28 03/29/18 21:28 03/29/18 21:28 03/29/18 21:28 Vital Signs Reviewed: Yes Appearance: Positive: Well-Appearing Skin: Positive: Warm Head/Face: Positive: Normal Head/Face Inspection Eyes: Positive: Normal Respiratory/Lung Sounds: Positive: Clear to Auscultation Cardiovascular: Positive: Normal Abdomen Description: Positive: Nontender Musculoskeletal: Positive: Normal Neurological: Positive: Normal Psychiatric: Positive: Normal AVPU Assessment: Alert - Orient Coma Scale Best Eye Response: 4 - Spontaneous Best Motor Response: 6 - Obeys Commands Best Verbal Response: 5 - Oriented Coma Scale Total: 15 Diagnostics - Vital Signs Vital Signs Temp Pulse Resp BP Pulse Ox 03/29/18 21:28 96.2 F 60 16 135/73 95 - Laboratory Lab Results: Lab Results 03/29/18 Range/Units 23:00 WBC 14.0 H (3.5-10.8) 10^3/ul RBC 4.21 (4.00-5.40) 10^6/ul Hgb 12.8 L (14.0-18.0) g/dl Hct 37 L (42-52) % MCV 88 (80-94) fL MCH 30 (27-31) pg MCHC 35 (31-36) g/dl RDW 13 (10.5-15) % Plt Count 369 (150-450) 10^3/ul MPV 7.2 L (7.4-10.4) fL Neut % (Auto) Pending Lymph % (Auto) Pending Cecil % (Auto) Pending Eos % (Auto) Pending Baso % (Auto) Pending Absolute Neuts (auto) Pending Absolute Lymphs (auto) Pending Absolute Monos (auto) Pending Absolute Eos (auto) Pending Absolute Basos (auto) Pending Absolute Nucleated RBC Pending Nucleated RBC % Pending Result Diagrams: 03/29/18 23:00 03/29/18 23:00 Lab Statement: Any lab studies that have been ordered have been reviewed, and results considered in the medical decision making process. GIGU Course/Dx - Course Course Of Treatment: Patient with history of recent prostatectomy 7 days ago at [facility] with urologist Dr. Rodriguez states indwelling Martin catheter stop draining around 6 PM tonight. Patient states he had, but gated prostate surgery and required a three-day stay in the hospital. States It was draining normally this morning. Has mild discomfort from surgery, states no change in level of discomfort. Denies any other symptoms including fever, abdominal pain , change in BM, N/V, CP, SOB. Medical history is prostate cancer, A. fib. Physical exam:Abdominal exam unremarkable. Surgical sites on abdomen appear clean and dry and intact. Surgical drain left lower quadrant appears to be draining well. Stoma is non-erythematous, no foul odor, no purulent discharge. Urine is leaking out of the tip of the penis. Urine in catheter bag is dark with small blood clots in it. Vital signs within normal limits and stable. Labs unremarkable. Nurse flushed catheter and states she was able to enter fluids through catheter, approx 300-400ml, but only about half drained out. Bladder scan after flushing positive for 190ml retained. Patient also states on re-exam that catheter bag now appears to have urine, which it did not upon arrival in the ED. Catheter bag will be drained and patient will be given trial of by mouth fluids to determine if urine is flowing through catheter. Positive urine flow after by mouth challenge. UA potential UTI. Rx for Levaquin sent to patient pharmacy as patient white count 14.0. Patient states he was not given antibiotic by a urology postsurgically due to bowel issues. Patient states he will hold off on taking antibiotics until urine culture comes back and he can call urology Dr. Velazquez later today for follow-up on whether he should take antibiotics given white count 14.0 and CRP 75. Patient and family understand an appropriate plan - Diagnoses Provider Diagnoses: Martin catheter status, UTI (urinary tract infection) Discharge - Sign-Out/Discharge Documenting (check all that apply): Patient Departure - Discharge Plan Condition: Stable Disposition: HOME Prescriptions: levoFLOXacin [Levaquin] 750 mg PO DAILY 7 Days #7 tablet Patient Education Materials: Martin Catheter Placement and Care (ED), Catheter- associated Urinary Tract Infection (ED) Referrals: Lyubov Donahue MD [Primary Care Provider] - Additional Instructions: Follow-up with your urologist. Return to the ED for any new or worsening symptoms - Billing Disposition and Condition Condition: STABLE Disposition: Home
[2018-03-29 23:23] LABS: Albumin 3.3 g/dL (3.2-5.2); Albumin/Globulin Ratio 1.2 (1-3); BUN/Creatinine Ratio 16.2 (8-20); C Reactive Protein 75.39 mg/L (<8.01); Calcium 9.1 mg/dL (8.6-10.3); EGFR Non-African American 66.3 (>60); Globulin 2.7 g/dL (2-4); Potassium 3.9 mmol/L (3.5-5.0); Total Bilirubin 0.3 mg/dL (0.2-1.0)
[2018-03-30 00:47] LABS: Urine Appearance Clear; Urine Bacteria Absent (Absent); Urine Bilirubin Negative (Negative); Urine Blood 3+ (Negative); Urine Color Straw; Urine Glucose Negative (Negative); Urine Ketones Negative (Negative); Urine Nitrite Negative (Negative); Urine Protein Negative (Negative); Urine Red Blood Cell 3+(>10/hpf) (Absent); Urine Specific Gravity 1.008 (1.010-1.030); Urine Urobilinogen Negative (Negative); Urine White Blood Cell 1+(6-10/hpf) (Absent)
[2018-03-30 00:53] LABS: ABS Basophils 0.1 10^3/ul (0-0.2); ABS Eosinophils 0.5 10^3/ul (0-0.6); ABS Lymphocytes 1.8 10^3/ul (1.0-4.8); ABS Monocytes 1.7 10^3/ul (0-0.8); ABS Neutrophils 9.9 10^3/ul (1.5-7.7); ABS Nucleated RBC 0 10^3/ul; Eosinophil % 3.3 %; Lymphocyte % 13.2 %; Nucleated Red Blood Cells % 0
[2018-03-30 01:18] VITALS: BP 137/83
== END 2018-03-30 01:17 | disposition home or self-care (01) ==
LOC: ED 21:23
DX: R31.9 Hematuria, unspecified (principal); Z79.01 Long term (current) use of anticoagulants; I10 Essential (primary) hypertension; N39.0 Urinary tract infection, site not specified; Z96.0 Presence of urogenital implants
CPT/HCPCS: 36415; 80053; 81003; 81015; 85025; 86140; 87086; 99282

== ENCOUNTER 2018-04-10 17:41 | Emergency (ER) | payer BC, MEDICARE ==
[2018-04-10] MEDS ORDERED: Morphine VIAL* 4 MG/ML VIAL (1 ml vial) IV ONE (18:19)
--- NOTE | 2018-04-10 18:29 | ED ---
GI/ HPI - HPI Summary HPI Summary: 67 year old male presents with hematuria. [facility] He states he did lift some water today. He states he's been history of a fib and is on xarelto. He states he just started his xarelto yesterday. He was just seen 2 days ago at [facility] and had his catheter removed. He states he was urinating without difficulty until today. He states in extreme amount of pain. He states his abdomen feels more distended than normal. Denies any nausea vomiting. No fever. No chest pain or shortness of breath. - History of Current Complaint Chief Complaint: EDUrogenitalProblems Time Seen by Provider: 04/10/18 18:02 Stated Complaint: PAIN IN BLADDER Pain Intensity: 9 - Additional Pertinent History Primary Care Physician: PAUL - Allergy/Home Medications Allergies/Adverse Reactions: Allergies Allergy/AdvReac Type Severity Reaction Status Date / Time No Known Allergies Allergy Verified 03/29/18 21:31 PMH/Surg Hx/FS Hx/Imm Hx Endocrine/Hematology History: Reports: Hx Anticoagulant Therapy Cardiovascular History: Reports: Hx Atrial Fibrillation, Hx Hypertension - never very high History: Denies: Hx Dialysis Sensory History: Reports: Hx Contacts or Glasses Denies: Hx Hearing Aid Opthamlomology History: Reports: Hx Contacts or Glasses Psychiatric History: Denies: Hx Autism Infectious Disease History: No Infectious Disease History: Denies: Hx Clostridium Difficile, Hx Hepatitis, Hx Human Immunodeficiency Virus (HIV), Hx of Known/Suspected MRSA, Hx Shingles, Hx Tuberculosis, Hx Known/ Suspected VRE, Hx Known/Suspected VRSA, History Other Infectious Disease, Traveled Outside the [place] in Last 30 Days - Family History Known Family History: Positive: Hypertension - mother - Social History Alcohol Use: None Substance Use Type: Reports: None Smoking Status (MU): Never Smoked Tobacco Review of Systems Negative: Fever Negative: Chest Pain Negative: Shortness Of Breath Positive: hematuria All Other Systems Reviewed And Are Negative: Yes Physical Exam Triage Information Reviewed: Yes Vital Signs On Initial Exam: Initial Vitals Temp Pulse Resp BP Pulse Ox 97.5 F 88 24 161/109 98 04/10/18 17:44 04/10/18 17:44 04/10/18 17:44 04/10/18 17:44 04/10/18 17:44 Vital Signs Reviewed: Yes Appearance: Positive: Well-Appearing Skin: Positive: Warm, Dry Head/Face: Positive: Normal Head/Face Inspection Eyes: Positive: Normal, Conjunctiva Clear ENT: Positive: Pharynx normal Respiratory/Lung Sounds: Positive: Clear to Auscultation, Breath Sounds Present Cardiovascular: Positive: Normal, RRR Abdomen Description: Positive: Other: - diffuse tenderness, blood and clots in urine Musculoskeletal: Positive: Normal Neurological: Positive: Normal Psychiatric: Positive: Normal Diagnostics - Vital Signs Vital Signs Temp Pulse Resp BP Pulse Ox 04/10/18 18:26 20 04/10/18 17:44 97.5 F 88 24 161/109 98 - Laboratory Result Diagrams: 04/10/18 18:40 Lab Statement: Any lab studies that have been ordered have been reviewed, and results considered in the medical decision making process. GIGU Course/Dx - Course Course Of Treatment: 67-year-old male presents with acute onset of hematuria today. He states he is being out clots. He is an extreme amount of pain. He does have a Ernandez removed 2 days ago at [facility]. On exam patient is very uncomfortable. Hasn't diffuse abdominal pain. Blood with clots noted in urinal. Spoke with dr adair staff at [facility] and recommends transfer. no ernandez. dr adair accepted patient. - Diagnoses Differential Diagnoses - Male: Other - urinary retention, hemautria Provider Diagnoses: Hematuria, Urinary retention Discharge - Sign-Out/Discharge Documenting (check all that apply): Patient Departure - Discharge Plan Condition: Stable Disposition: TRANS [facility] C[facility] FAC Referrals: Lyubov Donahue MD [Primary Care Provider] - - Billing Disposition and Condition Condition: STABLE Disposition: Trans Higher Lvl of Care Fac
[2018-04-10] MEDS ORDERED: HYDROmorphone INJ* 2 MG/ML CARPUJECT SYRINGE IV SLOW PU ONE (18:49)
[2018-04-10] MEDS ORDERED: HYDROmorphone INJ1* 1 MG/ML SYRINGE ONE ×2 (18:53→20:00)
[2018-04-10] MEDS: HYDROmorphone INJ1* 1 MG/ML SYRINGE IV SLOW PU ONE ×2 (18:56→20:02)
[2018-04-10 19:02] LABS: Hematocrit 38 % (42-52); Hemoglobin 12.5 g/dl (14.0-18.0); Mean Corpuscular HGB Conc 33 g/dl (31-36); Mean Corpuscular Hemoglobin 29 pg (27-31); Mean Corpuscular Volume 87 fL (80-94); Mean Platelet Volume 7.9 fL (7.4-10.4); Platelet Count 710 10^3/ul (150-450); Red Blood Count 4.35 10^6/ul (4.00-5.40); Red Cell Distribution Width 13 % (10.5-15); White Blood Count 26.8 10^3/ul (3.5-10.8)
[2018-04-10 19:03] LABS: Activated Partial Thrombo Time 33.7 seconds (26.0-36.3); INR 1.69 (0.77-1.02)
[2018-04-10] MEDS ORDERED: NS 0.9% 1000 ML* 1,000 ML IV ONE (19:08)
[2018-04-10 19:23] LABS: Albumin 3.7 g/dL (3.2-5.2); Albumin/Globulin Ratio 1.1 (1-3); BUN/Creatinine Ratio 19.8 (8-20); EGFR Non-African American 54.7 (>60); Globulin 3.5 g/dL (2-4); Total Bilirubin 0.2 mg/dL (0.2-1.0); Total Protein 7.2 g/dL (6.4-8.9)
[2018-04-10 19:36] LABS: ABS Basophils 0.3 10^3/ul (0-0.2); ABS Eosinophils 0.1 10^3/ul (0-0.6); ABS Lymphocytes 2.8 10^3/ul (1.0-4.8); ABS Monocytes 1.5 10^3/ul (0-0.8); ABS Nucleated RBC 0 10^3/ul; Eosinophil % 0.5 %; Lymphocyte % 10.4 %; Nucleated Red Blood Cells % 0
[2018-04-10 20:20] VITALS: BP 175/96
== END 2018-04-10 20:15 | disposition short-term general hospital (02) ==
LOC: ED 17:41
DX: R31.9 Hematuria, unspecified (principal); R33.9 Retention of urine, unspecified; Z79.01 Long term (current) use of anticoagulants
CPT/HCPCS: 36415; 80053; 85025; 85610; 85730; 96374; 96375; 96376; 99283; J1170; J2270

== ENCOUNTER 2023-05-16 16:24 | Observation (INO) ==
[2023-05-16 17:41] LABS: ABS Lymphocytes 1.3 10^3/uL (1.0-4.8); ABS Neutrophils 13.7 10^3/uL (1.5-7.6); ABS Nucleated RBC 0.01 10^3/ul; Eosinophil % 0.3 %; Hematocrit 46.5 % (38-53); Hemoglobin 15.6 g/dL (13.2-16.3); Lymphocyte % 8.2 %; Mean Corpuscular Hemoglobin 29.9 pg (27-33); Mean Corpuscular Hgb Conc 33.6 g/dL (31-36); Mean Corpuscular Volume 89.1 fL (80-97); Mean Platelet Volume 7.6 fL (7.5-11.2); Nucleated Red Blood Cells % 0.1 %/100WBC (0.0-0.8); Platelet Count 243 10^3/uL (150-450); Red Blood Count 5.22 10^6/uL (4.06-5.63); Red Cell Distribution Width 13.2 % (12-17); White Blood Count 16.2 10^3/uL (3.6-10.2)
[2023-05-16 17:57] LABS: Activated Partial Thrombo Time 36.2 seconds (26.0-38.0); INR 1.38 (0.83-1.13)
[2023-05-16 18:01] LABS: Urine Appearance Clear; Urine Bilirubin Negative (Negative); Urine Blood Negative (Negative); Urine Color Light-Yellow; Urine Glucose Negative (Negative); Urine Ketones Negative (Negative); Urine Nitrite Negative (Negative); Urine Protein Trace (Negative); Urine Specific Gravity >1.050 (1.002-1.030); Urine Urobilinogen Negative (Negative); Urine pH 7.5 (5.0-8.0)
[2023-05-16 20:20] LABS: Albumin 4.5 g/dL (3.2-5.2); Albumin/Globulin Ratio 1.7 (1-3); Calcium 9.8 mg/dL (8.6-10.3); Creatinine, Serum 1.12 mg/dL (0.67-1.17); Direct Bilirubin 0.1 mg/dL (0.03-0.18); Globulin 2.7 g/dL (2-4); HDL Cholesterol 45.1 mg/dL; Indirect Bilirubin 0.4 mg/dL (0.3-1.0); Potassium 4.5 mmol/L (3.5-5.0); Total Bilirubin 0.5 mg/dL (0.2-1.0); Total Protein 7.2 g/dL (6.4-8.9); eGFR CKD-EPI 70.2 (>60)
[2023-05-17 06:41] LABS: Hematocrit 42.8 % (38-53); Hemoglobin 14.6 g/dL (13.2-16.3); Mean Corpuscular Hemoglobin 30.1 pg (27-33); Mean Corpuscular Hgb Conc 34.1 g/dL (31-36); Mean Corpuscular Volume 88.3 fL (80-97); Mean Platelet Volume 7.8 fL (7.5-11.2); Platelet Count 235 10^3/uL (150-450); Red Blood Count 4.85 10^6/uL (4.06-5.63); Red Cell Distribution Width 12.9 % (12-17); White Blood Count 12.8 10^3/uL (3.6-10.2)
[2023-05-17] MEDS ORDERED: NON FORMULARY MED (Bisoprolol-Hydrochlorothiazide 10-6.25 mg tablet) PO SCH (09:00)
[2023-05-17] MEDS: Gadoteridol (CONTRAST) 279.3 MG/ML 10 ML IV ONE (14:39)
[2023-05-17 16:04] VITALS: BP 147/76
[2023-05-19] MEDS: Iodixanol 320 (CONTRAST) 100 ML SDV IV ONE (08:23)
== END 2023-05-17 17:30 | disposition home or self-care (01) ==
LOC: ED 16:24 → EDHOLD 16:24 → SUATTDRO 19:25 → MEDTELE 05-17 02:40
PROVIDERS: ADMIT Internal Medicine; ATTEND Student in an Organized Health Care Education/Training Program